=== PATIENT | female | born 1945 | race Caucasian/White ===

== ENCOUNTER 2019-01-01 16:50 | Inpatient (IN) | payer OTHER, BC ==
[~2019-01-01] VITALS: Ht 154.9 cm; Wt 86.9 kg
[2019-01-01] MEDS ORDERED: UNICOMPLEX M TA1 TA1 PO (18:37)
[2019-01-01] MEDS ORDERED: XANAX 0.5 MG0.5 MG PO (18:37)
[2019-01-01] MEDS ORDERED: AMITRIPTYLINE H25 M4 PO (18:37)
[2019-01-01] MEDS ORDERED: VITAMIN D3400 UNIT PO (18:39)
[2019-01-01] MEDS ORDERED: LEVSIN0.125 MG PO (18:45)
[2019-01-01] MEDS ORDERED: VITAMIN B-12500 MCG PO (18:45)
[2019-01-01] MEDS ORDERED: SYNTHROID100 MC1 PO (18:46)
[2019-01-01] MEDS ORDERED: HYDROCHLOROTH12.5 M1 PO (18:46)
[2019-01-01] MEDS ORDERED: GLUCOPHAGE XR750 MG (18:47)
[2019-01-01] MEDS ORDERED: LISINOPRIL40 MG PO (18:47)
[2019-01-01] MEDS ORDERED: LOPRESSOR100 M1 PO (18:48)
[2019-01-01] MEDS ORDERED: K-DUR10 MEQ PO (18:48)
[2019-01-01] MEDS ORDERED: TRAMADOL 50 MG50 MG PO (18:49)
[2019-01-01] MEDS ORDERED: PRAVACHOL40 MG PO (18:49)
[2019-01-01] MEDS ORDERED: VITAMIN PO (18:50)
[2019-01-01] MEDS ORDERED: CALCIUM PO (18:50)
[2019-01-01 19:13] VITALS: BP 152/83
--- NOTE | 2019-01-01 19:36 | NUR ---
PATIENT IS A DIRECT ADMIT FROM [facility], CAME IN AT 1820. DR HERNANDEZ NOTIFED, ORDER NOTED. STAT EKG DONE, CARDIOLOGY CONSULT WAS CALLED. VSS, AFEBRILE. REPORT GIVEN TO NIGHT NURSE ALE.
[2019-01-02] VITALS (7 sets, daily range): BP systolic 128–148; BP diastolic 66–87
[2019-01-02 04:37] LABS: ANION GAP 13 mmol/L (7-16); BUN 13 mg/dL (7-18); CALCIUM 9.5 mg/dL (8.5-10.1); CHLORIDE 103 mmol/L (98-107); CO2 24 mmol/L (21-32); CREATININE 0.8 mg/dL (0.6-1.0); GLUCOSE 126 mg/dL (74-106); POTASSIUM 3.2 mmol/L (3.5-5.1); SODIUM 140 mmol/L (136-145); TROPONIN-I <0.06 ng/mL (<0.06)
[2019-01-02 05:12] LABS: HEMATOCRIT 39.9 % (37.0-47.0); HEMOGLOBIN 13.4 gm/dL (12.0-15.0); MCH 32.1 pg (26.0-34.0); MCHC 33.6 g/dL (28.0-37.0); MCV 95.5 fL (80.0-100.0); RBC 4.18 mil/uL (4.20-5.00); RDW 13.9 % (10.5-14.5); WBC 8.2 thou/uL (4.0-11.0)
--- NOTE | 2019-01-02 08:22 | NUR ---
pt resting quietly in room, uses call light appropriatly, cardizem gtt restarted and titrated to 20mg/hr, hr 1teens to 120's, no c/o pain, pt up br with sba,report given to next shift to con't with ppoc.
--- NOTE | 2019-01-02 09:25 | EKG ---
[address] [place] [address] ELECTROCARDIOGRAM REPORT Name: AALIYAH ANDRES Room #: 206-P ADM IN M.R.#: [id number] ������������������ Admission: 01/01/19 ������������������ Attend Phys: Rodney Quiñones MD Discharge: ������������������ Date of : 43 Report #: [id number] ����������������������������������������������������������������� [id number] THIS REPORT FOR: //name// [facility] Test Date: 2019-01-01 Test Time: 18:59:22 Pat Name: AALIYAH ANDRES Department: Room: 206 P Gender: F Desizing Machine Back Tender: Manisha HARPER : 1945 Requested By: Armani Lay Order Number: [id number] MD: Edouard Silva Measurements Intervals [place] Rate: 119 P: 89 RI: 155 QRS: 178 QRSD: 129 T: -66 QT: 386 QTc: 544 Interpretive Statements Atrial flutter with 2-1 AV conduction Poor R wave progression No previous ECG available for comparison Electronically Signed On 01-02-2019 9:25:31 CDT by Edouard Silva [email or web address] ��������������������������������������������� <ELECTRONICALLY SIGNED> ���������������������������������������� By: Edouard Silva MD, [facility] ��������������������������������������������� 01/02/19 0925 58 58 Edouard Silva MD, FAC /EPI
--- NOTE | 2019-01-03 03:10 | NUR ---
ASSESSMENT DOCUMENTED.PT RESTING IN NO ACUTE DISTRESS.A/OX4.VSS.ON MONITOR AFLUTTER,HR IN LOW 100S MOST OF THE NIGHT WITH OCCASSIONALLY TACHY RATES.DENIES CHEST PAIN OR ANY NEEDS.STRESS TEST PART 2 TO BE DONE TODAY.UP AD MARTHA TO BR.NO CONCERNS VOICED AT THIS TIME.WILL CONTINUES TO MONITOR.POSSIBLE DISCHARGE TODAY AFTER STRESS TEST.
[2019-01-03 04:11] VITALS: BP 119/64
[2019-01-03 05:09] LABS: MAGNESIUM 1.7 mg/dL (1.8-2.4); POTASSIUM 3.7 mmol/L (3.5-5.1)
[2019-01-03 07:45] VITALS: BP 138/83
[2019-01-03 11:25] VITALS: BP 153/109
--- NOTE | 2019-01-03 11:29 | 2DMMODE ---
[facility] [address] [facility] [email or web address] [address] 2 D/M-MODE ECHOCARDIOGRAM Name: AALIYAH ANDRES Room #: 206-P ADM IN M.R.#: [id number] ������������� Admission: 01/01/19 ������������� Attend Phys: Rodney Quiñones MD Discharge: ��� ������������� ��� Date of : 43 Date of Service: 01/03/19 1129 �� Report #: [id number] �������� ��������������������������������������������[id number] THIS REPORT FOR: //name// APPROVED REPORT Study performed: 01/03/2019 09:59:59 EXAM: Comprehensive 2D, Doppler, and color-flow Echocardiogram Patient Location: Echo lab Room #: 206 Status: routine BSA: 1.85 HR: 99 bpm BP: 138/83 mmHg Rhythm: Atrial Fibrillation Other Information Study Quality: Good Indications Atrial Fibrillation Tachycardia Hx: HTN, HLP, DM. 2D Dimensions RVDd: 28.51 mm IVSd: 12.00 (7-11mm) LVOT Diam: 18.62 (18-24mm) LVDd: 45.28 mm PWd: 12.00 (7-11mm) Ascending Ao: 28.52 (22-36mm) LVDs: 32.48 (25-40mm) Aortic Root: 33.05 mm Volumes Left Atrial Volume (Systole) Single Plane 4CH: 65.26 mL Single Plane 2CH: 69.92 mL LA ESV Index: 39.00 mL/m2 Aortic Valve AoV Peak Tony.: 1.52 m/s AO Peak Gr.: 9.23 mmHg LVOT Max P.06 mmHg LVOT Max V: 1.00 m/s JEFF Vmax: 1.79 cm2 Mitral Valve MV Decel. Time: 151.43 ms [facility] [address] [place] [address] 2 D/M-MODE ECHOCARDIOGRAM Name: AALIYAH ANDRES Room #: 206- ADM IN [facility]#: [id number] ������������� Admission: 01/01/19 ������������� Attend Phys: Rodney Quiñones MD Discharge: ��� ������������� ��� Date of : 43 Date of Service: 01/03/19 1129 �� Report #: [id number] �������� ��������������������������������������������[id number] MV E Max Tony.: 1.36 m/s Pulmonary Valve PV Peak Tony.: 0.67 m/s PV Peak Gr.: 1.79 mmHg Tricuspid Valve TR Peak Tony.: 2.44 m/s RAP Estimate: 5.00 mmHg TR Peak Gr.: 24.06 mmHg PA Pressure: 29.00 mmHg Left Ventricle The left ventricle is normal size. Mild concentric left ventricular hypertrophy. Left ventricular systolic function is mildly decreased. LVEF is 45-50%. This study is not technically sufficient to allow evaluation of the LV diastolic function due to atrial fibrillation. Right Ventricle The right ventricle is normal size. The right ventricular systolic function is normal. Atria Left atrium is moderately dilated. Right atrium is moderately dilated. Aortic Valve Aortic valve is trileaflet, mildly thickened leaflets. Mild aortic regurgitation. There is no aortic valvular stenosis. Mitral Valve The mitral valve is normal in structure. Mild to moderate mitral regurgitation. Tricuspid Valve The tricuspid valve is normal in structure. Moderate tricuspid regurgitation. Estimated PAP is 30mmHg. Pulmonic Valve The pulmonary valve is normal in structure. Trace pulmonic regurgitation. Great Vessels The aortic root is normal in size. The ascending aorta is normal in size. IVC is normal in size and collapses >50% with inspiration. [facility] [address] [place] [address] 2 D/M-MODE ECHOCARDIOGRAM Name: AALIYAH ANDRES Room #: 206-P ADM IN M.R.#: [id number] ������������� Admission: 01/01/19 ������������� Attend Phys: Rodney Quiñones MD Discharge: ��� ������������� ��� Date of : 43 Date of Service: 01/03/19 1129 �� Report #: [id number] �������� ��������������������������������������������[id number] Pericardium There is no pericardial effusion. <Conclusion> The left ventricle is normal size. Mild concentric left ventricular hypertrophy. Left ventricular systolic function is mildly decreased. LVEF is 45-50%. Left atrium is moderately dilated. Right atrium is moderately dilated. Aortic valve is trileaflet, mildly thickened leaflets. Mild aortic regurgitation. The mitral valve is normal in structure. Mild to moderate mitral regurgitation. The tricuspid valve is normal in structure. Moderate tricuspid regurgitation. Estimated PAP is 30mmHg. The pulmonary valve is normal in structure. Trace pulmonic regurgitation. ��������������������������������������������� <ELECTRONICALLY SIGNED> ���������������������������������������� By: Zia Live MD ��������������������������������������������� 01/03/19 1129 1129 1129 Zia Live MD /INF
[2019-01-03 15:45] VITALS: BP 119/65
[2019-01-03] MEDS ORDERED: DILTIAZEM 24HR240 M1 PO (16:28)
[2019-01-03] MEDS ORDERED: ELIQUIS5 MG PO (16:28)
[2019-01-03 17:50] VITALS: BP 119/65
[2019-01-03 18:11] VITALS: BP 119/65
--- NOTE | 2019-01-04 18:11 | EKG ---
[address] [address] ELECTROCARDIOGRAM REPORT Name: AALIYAH ANDRES Room #: 206-P DIS IN M.R.#: [id number] ������������������ Admission: 01/01/19 ������������������ Attend Phys: Rodney Quiñones MD Discharge: 01/03/19 ������������������ Date of : 43 Report #: [id number] ����������������������������������������������������������������� [id number] THIS REPORT FOR: //name// [facility] Test Date: 2019-01-02 Test Time: 09:49:19 Pat Name: AALIYAH ANDRES Department: Room: 206 P Gender: F Health Physics Technician: Aguilar MCKAY : 1945 Requested By: Emily Barros Order Number: [id number] MD: Zia Live Measurements Intervals [place] Rate: 120 P: 89 [place]: 224 QRS: 180 QRSD: 99 T: -58 QT: 410 QTc: 580 Interpretive Statements Atrial flutter Poor R-wave progression consider anteroseptal infarct age indeterminate Nonspecific ST-T wave changes Compared to ECG 01/01/2019 18:59:22 no significant changes Electronically Signed On 01-04-2019 18:11:41 CDT by Zia Live [email or web address] ��������������������������������������������� <ELECTRONICALLY SIGNED> ���������������������������������������� By: Zia Live MD ��������������������������������������������� 01/04/19 1811 0949 0949 Zia Live MD /EPI
== END 2019-01-03 18:05 | disposition home or self-care (01) | DRG 310 ==
LOC: 3N 16:50 → 2N 17:23 → ENTRNSPT 01-03 17:56 → 2N 01-03 18:05
PROVIDERS: Internal Medicine; ADMIT Hospitalist
DX: I48.91 Unspecified atrial fibrillation (principal); I48.92 Unspecified atrial flutter; I10 Essential (primary) hypertension; E03.9 Hypothyroidism, unspecified; E78.5 Hyperlipidemia, unspecified; E11.9 Type 2 diabetes mellitus without complications; M19.90 Unspecified osteoarthritis, unspecified site; F41.9 Anxiety disorder, unspecified; R00.0 Tachycardia, unspecified; E87.6 Hypokalemia; G47.00 Insomnia, unspecified; E83.42 Hypomagnesemia; Z88.6 Allergy status to analgesic agent; Z79.01 Long term (current) use of anticoagulants
CPT/HCPCS: 10081

== ENCOUNTER 2019-02-06 12:38 | Inpatient (IN) | payer OTHER, BC ==
--- NOTE | ~2019-02-06 | P ---
[facility] [place] [address] PROCEDURE REPORT Name: AALIYAH ANDRES Room #: 213-P ADM IN M.R.#: [id number] Admission: 02/06/19 ������������������ Attend Phys: Zia Live Discharge: ������������������ Date of : 43 Report #: [id number] THIS REPORT FOR: //name// CC: DEX Live Physician staff DATE OF SERVICE: 02/07/2019 INDICATIONS: A 73-year-old female patient with symptomatic paroxysmal atrial fibrillation. PROCEDURES PERFORMED: 1. Electrical cardioversion. 2. Supervision of conscious sedation. CONTROLS ENGINEER: Zia Live MD BRIEF DESCRIPTION OF PROCEDURE: After informed consent was obtained, the patient was brought to the cardiovascular concrete plant laborer prep and hold. She was sedated with 5 mg of Versed and 50 of Demerol while undergoing continuous oximetric and electrocardiographic monitoring. She subsequently underwent 1 synchronized shock utilizing AP paddles in a biphasic modality at 200 joules. This converted her sinus bradycardia with a first-degree AV block. She was allowed to recover and postprocedure she was awake and alert without any issues or complications. ��������������������������������������������� ���������������������������������������� By: ��������������������������������������������� 1348 1358 Zia Live MD /nt
--- NOTE | ~2019-02-06 | D ---
[facility] [place] [address] DISCHARGE SUMMARY Name: AALIYAH ANDRES Room #: 213-P ADM IN M.R.#: [id number] Admission: 02/06/19 ������������������ Attend Phys: Zia Live Discharge: ������������������ Date of : 43 Report #: [id number] THIS REPORT FOR: //name// CC: DEX Live Physician staff DATE OF SERVICE: 02/07/2019 ADMITTING DIAGNOSIS: Symptomatic paroxysmal atrial fibrillation. DISCHARGE DIAGNOSIS: Symptomatic paroxysmal atrial fibrillation. PROCEDURES PERFORMED: 1. Electrical cardioversion. 2. Supervision of conscious sedation. FOLLOWUP: With Dr. Live in [facility] in 1 month. DISCHARGE MEDICATIONS: Home medications with the following exceptions: 1. Discontinue diltiazem. 2. Amiodarone 200 mg p.o. t.i.d. for 1 week, then q.a.m. from then on (if the patient gets nauseated with t.i.d., then should go to b.i.d. for 2 weeks). DISCHARGE DIET: Home diet. DISCHARGE INSTRUCTIONS: The patient is to monitor blood pressures to make sure that it does not increase significantly. BRIEF CLINICAL HISTORY: See history and physical in chart. HOSPITAL COURSE: The patient was admitted to the hospital and underwent IV amiodarone protocol. This failed to convert her to sinus rhythm, although she did convert to flutter at times. She subsequently underwent a synchronized cardioversion with AP paddles and a biphasic shock at 200 joules. The patient tolerated this well after having been sedated with Demerol 50 mg and Versed 5 mg while undergoing continuous electrocardiographic and oximetric monitoring. Post procedure, the patient did well, was allowed to ambulate and discharged home in stable condition to follow up with the previously stated discharge instructions and medications. ��������������������������������������������� ���������������������������������������� By: ��������������������������������������������� 1346 2037 Zia Live MD /nt
[~2019-02-06 12:38] MED LIST: AMITRIPTYLINE H25 M4 PO; CALCIUM PO; DILTIAZEM 24HR240 M1 PO; ELIQUIS5 MG PO; GLUCOPHAGE XR750 MG; HYDROCHLOROTH12.5 M1 PO; K-DUR10 MEQ PO; LEVSIN0.125 MG PO; LISINOPRIL40 MG PO; LOPRESSOR100 M1 PO; PRAVACHOL40 MG PO; SYNTHROID100 MC1 PO; TRAMADOL 50 MG50 MG PO; UNICOMPLEX M TA1 TA1 PO; VITAMIN B-12500 MCG PO; VITAMIN D3400 UNIT PO; VITAMIN PO; XANAX 0.5 MG0.5 MG PO
--- NOTE | 2019-02-06 13:53 | NUR ---
PT ORIENTED TO ROOM AND UNIT. BED LOW AND LOCKED, SIDE RAILS UP X3, CALL LIGHT IN REACH. PT DENIES PAIN OR SOA AT THIS TIME. TELE MONITOR APPLIED TOP CHEST. PT IV TEAM TO COME AND START IV THEN WILL BEGIN AMIODARONE GTT. WILL CONTINUE TO ASSESS.
[2019-02-06 14:00] VITALS: BP 148/65
[2019-02-06 16:00] VITALS: BP 149/92
[2019-02-06 20:35] VITALS: BP 146/90
[2019-02-07 00:24] VITALS: BP 139/84
--- NOTE | 2019-02-07 04:30 | NUR ---
PT ALERT AND ORIENTED. DENIES CHEST PAIN OR PALPITATIONS. PT ADMITTED FOR AFIB W/ RVR. ON AMIODARONE DRIP AT 16.7 MLS/HR. PT STILL IN AFIB. OFTEN HR SPIKES TO 100+ UPTO 200+ BUT DOES NOT SUSTAIN AND PATIENT IS ASYMPTOMATIC. PLANNED FOR CARDIOVERSION TODAY. BEEN NPO SINCE MIDNIGHT. WILL CONTINUE TO FOLLOW PLAN OF CARE.
[2019-02-07 04:45] VITALS: BP 142/73
[2019-02-07 07:50] VITALS: BP 125/70
[2019-02-07 13:30] VITALS: BP 125/76
[2019-02-07] MEDS ORDERED: PACERONE 200 M200 M1 PO (13:42)
[2019-02-07 15:52] VITALS: BP 101/41
[2019-02-07 19:32] VITALS: BP 117/74
--- NOTE | 2019-02-08 04:11 | NUR ---
PT POST CARDIOVERSION. PT CONVERTED FROM AFIB TO SR . BUT OVER NIGHT, PT HAD EPISODES OF GOING IN AND OUT OF AFIB. REMAINS ASYMPTOMATIC. PT ANTICIPATES TO DISCHARGE TODAY. NO OTHER CONCERNS REPORTED. WILL CONTINUE TO FOLLOW POC.
[2019-02-08 04:45] VITALS: BP 149/77
[2019-02-08] MEDS ORDERED: TOPROL XL25 MG PO (07:35)
[2019-02-08] MEDS ORDERED: PACERONE 200 M200 M1 PO (07:35)
[2019-02-08 07:45] VITALS: BP 148/80
--- NOTE | 2019-02-08 07:51 | NUR ---
PATIENT CARE ASSUMED, ASSESSMENT CHARTED, VSS, ALERT AND ORIENTED, PT TO BE DISCHARGED TODAY.
[2019-02-08 09:33] VITALS: BP 148/80
--- NOTE | 2019-02-09 22:29 | EKG ---
[address] [address] ELECTROCARDIOGRAM REPORT Name: AALIYAH ANDRES Room #: 213-P DIS IN M.R.#: [id number] ������������������ Admission: 02/06/19 ������������������ Attend Phys: Zia Live Discharge: 02/08/19 ������������������ Date of : 43 Report #: [id number] ����������������������������������������������������������������� [id number] THIS REPORT FOR: //name// [facility] Test Date: 2019-02-07 Test Time: 08:22:49 Pat Name: AALIYAH ANDRES Department: Room: 213 P Gender: F Senior Account Director: DEEPIKA : 1945 Requested By: Emily Barros Order Number: [id number] MD: Rodger Michelle Measurements Intervals [place] Rate: 80 P: ME: QRS: 92 QRSD: 130 T: 71 QT: 584 QTc: 674 Interpretive Statements Atrial flutter Paired ventricular premature complexes Nonspecific intraventricular conduction delay Electronically Signed On 02-09-2019 22:29:32 CDT by Rodger Michelle [email or web address] ��������������������������������������������� <ELECTRONICALLY SIGNED> ���������������������������������������� By: Rodger Michelle MD ��������������������������������������������� 02/09/199 1 1 Rodger Michelle MD /ANNABELLA
--- NOTE | 2019-02-09 22:36 | EKG ---
[address] [address] ELECTROCARDIOGRAM REPORT Name: AALIYAH ANDRES Room #: 213-P DIS IN M.R.#: [id number] ������������������ Admission: 02/06/19 ������������������ Attend Phys: Zia Live Discharge: 02/08/19 ������������������ Date of : 43 Report #: [id number] ����������������������������������������������������������������� [id number] THIS REPORT FOR: //name// [facility] Test Date: 2019-02-08 Test Time: 06:55:58 Pat Name: AALIYAH ANDRES Department: Room: 213 P Gender: F Cork Painter And Grader: : 1945 Requested By: Zia Live Order Number: [id number] MD: Rodger Michelle Measurements Intervals [place] Rate: 57 P: [place]: QRS: 106 QRSD: 101 T: 44 QT: 462 QTc: 450 Interpretive Statements Junctional rhythm Left posterior fascicular block Anterior infarct, old Compared to ECG 01/02/2019 09:49:19 Junctional rhythm now present Left posterior fascicular block now present Atrial flutter no longer present ST (T wave) deviation no longer present Myocardial infarct finding still present Electronically Signed On 02-09-2019 22:36:16 CDT by Rodger Michelle [email or web address] ��������������������������������������������� <ELECTRONICALLY SIGNED> ���������������������������������������� By: Rodger Michelle MD ��������������������������������������������� 02/09/19 2236 0655 0655 Rodger Michelle MD /EPI
== END 2019-02-08 11:27 | disposition home or self-care (01) | DRG 310 ==
LOC: CATH 12:38 → 2N 12:46 → CATH 02-07 09:24 → ENTRNSPT 02-08 10:39 → 2N 02-08 11:27
PROVIDERS: ADMIT Internal Medicine
PROC: 5A2204Z Restoration of Cardiac Rhythm, Single (ICD-10-PCS; principal; 2019-02-07)
DX: I48.0 Paroxysmal atrial fibrillation (principal); I10 Essential (primary) hypertension; E78.5 Hyperlipidemia, unspecified; E11.9 Type 2 diabetes mellitus without complications; Z79.899 Other long term (current) drug therapy
CPT/HCPCS: 10797

== ENCOUNTER → 2021-05-11 | Outpatient (CLI) | payer OTHER, BC ==
[~2021-05-11] MED LIST changes: +PACERONE 200 M200 M1 PO; +TOPROL XL25 MG PO
== END ==
LOC: SJCVCIMAG 09:51 → SJCVC 09:51
PROVIDERS: ATTEND Internal Medicine
DX: I08.3 Combined rheumatic disorders of mitral, aortic and tricuspid valves (principal); I27.20 Pulmonary hypertension, unspecified; I11.9 Hypertensive heart disease without heart failure; R94.31 Abnormal electrocardiogram [ECG] [EKG]; I44.4 Left anterior fascicular block; I48.0 Paroxysmal atrial fibrillation; I10 Essential (primary) hypertension; E78.5 Hyperlipidemia, unspecified; M19.90 Unspecified osteoarthritis, unspecified site; E11.9 Type 2 diabetes mellitus without complications; Z79.899 Other long term (current) drug therapy; Z87.891 Personal history of nicotine dependence; Z82.49 Family history of ischemic heart disease and other diseases of the circulatory system